=== PATIENT | female | born 1965 | race Caucasian/White ===

== ENCOUNTER 2016-08-03 14:31 | Emergency (ER) | payer OTHER ==
[~2016-08-03] VITALS: Ht 157.5 cm; Wt 90.7 kg
[2016-08-03] MEDS ORDERED: ALEVE220 MG PO (14:49)
[2016-08-03] MEDS ORDERED: MOBIC7.5 MG PO ×2 (14:51→16:09)
== END 2016-08-03 16:11 | disposition home or self-care (01) ==
LOC: ER 14:31
DX: S83.91XA Sprain of unspecified site of right knee, initial encounter (principal); X50.1XXA Overexertion from prolonged static or awkward postures, initial encounter; Y93.89 Activity, other specified; Y92.89 Other specified places as the place of occurrence of the external cause; Y99.0 Civilian activity done for income or pay